=== PATIENT | female | born 1945 | race Caucasian/White ===

== ENCOUNTER → 2017-01-20 | Outpatient (CLI) | payer MEDICARE, BC ==
[~2017-01-20] MED LIST: ALENDRONATE SOD70 MG PO; CALCIUM CITRATE1 T15 PO; CYANOCOBALAM1000 MCG PO; HYDROCODON-ACE1 EAC5 PO; LIPITOR20 MG PO; LYRICA100 MG PO; MULTIPLE VITAMI1 T11 PO; PANTOPRAZOLE SO40 MG PO
--- NOTE | ~2017-01-20 | MY11 ---
[facility] A Service of [facility] / [facility] RADIOLOGY TEXT RESULTS PATIENT: ERICA FRAUSTO LOCATION: [facility] : 49 UNIT #: [id number] AGE: [address]: Sabino Rayo MD SEX: F ORDER DR: [id number] [facility] [address] [place], [place] [address] [id number] O MR#: [id number] Acc #: [id number] NAME: ERICA FRAUSTO : 1945 SEX: F STUDY DATE/TIME: 01/20/2017 8:16 UNIT: [facility] ROOM: STUDY DESCRIPTION: MY Mammogram Screening [facility] Attending Physician: Sabino Rayo M.D. Referring Physician: Sabino Rayo M.D. Ordering Physician: Sabino Rayo M.D. Primary Care Physician: Sabino Rayo M.D. MEDICAL IMAGING REPORT This report is preliminary unless electronic signature is present EXAM Bilateral digital screening mammogram CAD, 01/20/2017 HISTORY 71-year-old female with no personal history of breast cancer. Family history of breast cancer in her sister. No current complaints. COMPARISON Right breast diagnostic mammogram 08/20/2015. Bilateral screening mammogram 06/27/2015. Bilateral screening mammogram 06/27/2015 and 03/07/2014. FINDINGS CC and MLO views obtained of each breast utilizing digital technique and reviewed with an FDA-approved CAD device. Scattered fibroglandular densities are present bilaterally. No new or developing nodule is seen. There a few scattered benign-appearing calcifications in each breast, but no suspicious cluster of microcalcifications are identified. No architectural distortion. IMPRESSION Routine screening mammogram recommended in one year. Patients over the age of 40 are entered into a reminder system with target due date for the next mammogram. A result letter will also be sent to the patient. BIRADS: 1 Negative Dictated by... Lady Baires M.D. [facility] A Service [facility] RADIOLOGY TEXT RESULTS PATIENT: ERICA FRAUSTO LOCATION: [facility] : 49 UNIT #: [id number] AGE: [address]: Sabino Rayo MD SEX: F ORDER DR: THIS IS AN ELECTRONICALLY VERIFIED REPORT Lady Baires M.D. at 01/21/2017 2:22 PM Christian TD: 01/20/2017 09:44 JOB #: [id number] MEDICAL IMAGING REPORT Page 1 of 1 COPY
== END | disposition home or self-care (01) ==
LOC: CWCC 07:50
DX: Z12.31 Encounter for screening mammogram for malignant neoplasm of breast (principal); Z80.3 Family history of malignant neoplasm of breast
CPT/HCPCS: G0202